=== PATIENT | female | born 2000 | race Caucasian/White ===

== ENCOUNTER → 2018-03-04 | Outpatient (CLI) | payer OTHER ==
[~2018-03-04] MED LIST: IBUP-1050 PO
[2018-03-08 14:29] LABS: HEPATITIS BE ANTIBODY TC 556 Nonreactive
== END | disposition home or self-care (01) ==
LOC: C.LABPVFM 11:15
PROVIDERS: ATTEND Nurse Practitioner Family
DX: Z02.0 Encounter for examination for admission to educational institution (principal)